=== PATIENT | male | born 1940 | race Caucasian/White ===

== ENCOUNTER → 2017-08-26 | Outpatient (CLI) | payer OTHER, BC | LOC: CIMAGING 13:05 | PROVIDERS: ATTEND Family Medicine | DX: N62 Hypertrophy of breast (principal) | CPT/HCPCS: 76641-PO ==

== ENCOUNTER → 2017-12-20 | Outpatient (CLI) | payer OTHER | LOC: BRMIMAGING 08:52 | PROVIDERS: ATTEND Family Medicine | DX: Z01.818 Encounter for other preprocedural examination (principal) | CPT/HCPCS: 71046-PO ==